=== PATIENT | female | born 1945 | race African-American/Black ===

== ENCOUNTER 2022-10-12 09:58 | Observation (INO) | payer OTHER ==
[2022-10-12 10:10] VITALS: BMI 32.5
[2022-10-12] MEDS ORDERED: HYDROCHLOROTHIAZIDE 25 MG TABLET (FP) PO ONE (10:36)
[2022-10-12] MEDS ORDERED: HYDROCHLOROTHIAZIDE 25 MG TABLET (FP) ONE (10:40)
[2022-10-12 10:58] LABS: EOS % 4.4 % (0-4.5); HEMATOCRIT 37.5 % (32.4-45.2); HEMOGLOBIN 12.4 GM/dL (10.7-15.3); LYMPH % 48.9 % (8-40); MCH 25.9 pg (25.7-33.7); MCHC 33.1 g/dl (32.0-36.0); MEAN CELL VOLUME 78.1 fl (80-96); MEAN PLT VOLUME 7.6 fl (7.5-11.1); MONO % 8.3 % (3.8-10.2); NEUT % 37.4 % (42.8-82.8); PLATELET COUNT 226 10^3/uL (134-434); RDW 16.5 % (11.6-15.6); WHITE BLOOD COUNT 5.1 K/mm3 (4.0-10.0)
[2022-10-12 11:12] LABS: INR 0.93 (0.83-1.09); PROTHROMBIN TIME (PATIENT) 10.8 SEC (9.7-13.0)
[2022-10-12 11:15] LABS: ACTIVATED PTT 28.2 SECONDS (25.2-36.5)
[2022-10-12 11:18] LABS: CALCIUM 9.8 mg/dL (8.5-10.1)
[2022-10-12 11:19] LABS: ALBUMIN 3.8 g/dl (3.4-5.0); BLOOD UREA NITROGEN 15.5 mg/dL (7-18); MAGNESIUM 2.2 mg/dL (1.8-2.4)
[2022-10-12 11:22] LABS: CREATININE 0.9 mg/dL (0.55-1.3)
[2022-10-12 11:24] LABS: BILIRUBIN,TOTAL 0.3 mg/dL (0.2-1); TOT PROT 7.5 g/dl (6.4-8.2)
[2022-10-12] MEDS ORDERED: ACETAMINOPHEN INJECTION 100 ML IVPB ONE (11:52)
[2022-10-12] MEDS ORDERED: ACETAMINOPHEN 1000 MG/100 ML BAG IVPB ONE (11:55)
[2022-10-12 14:46] VITALS: RESP 18
[2022-10-12] MEDS: LOSARTAN POTASSIUM 25 MG TABLET PO SCH (16:20)
[2022-10-12] MEDS: hydrALAZINE HCL 25 MG TABLET (FP) PO SCH (21:43)
[2022-10-12] MEDS ORDERED: ATORVASTATIN CA 40 MG TABLET (FP) PO SCH (22:00)
[2022-10-13 08:34] LABS: BASO % 0.6 % (0-2.0); EOS % 5.6 % (0-4.5); HEMATOCRIT 35.2 % (32.4-45.2); LYMPH % 44.6 % (8-40); MCH 26.3 pg (25.7-33.7); MCHC 33.9 g/dl (32.0-36.0); MEAN CELL VOLUME 77.5 fl (80-96); MEAN PLT VOLUME 7.9 fl (7.5-11.1); MONO % 9.6 % (3.8-10.2); NEUT % 39.6 % (42.8-82.8); PLATELET COUNT 222 10^3/uL (134-434); RBC 4.55 M/mm3 (3.60-5.2); RDW 16.4 % (11.6-15.6); WHITE BLOOD COUNT 5.3 K/mm3 (4.0-10.0)
[2022-10-13 09:02] LABS: CALCIUM 9.1 mg/dL (8.5-10.1)
[2022-10-13 09:03] LABS: ALBUMIN 3.5 g/dl (3.4-5.0); BLOOD UREA NITROGEN 15.3 mg/dL (7-18)
[2022-10-13 09:06] LABS: CREATININE 0.9 mg/dL (0.55-1.3)
[2022-10-13 09:07] LABS: BILIRUBIN,TOTAL 0.6 mg/dL (0.2-1); TOT PROT 6.9 g/dl (6.4-8.2)
[2022-10-13] MEDS ORDERED: ENOXAPARIN NA (PORCINE) 40 MG/0.4 ML DISP.SYRIN SQ SCH (10:00)
[2022-10-13] MEDS ORDERED: ASPIRIN 81 MG CHEWABLE TABLETS PO SCH (10:00)
[2022-10-13] MEDS: hydrALAZINE HCL 25 MG TABLET (FP) PO SCH (11:04)
[2022-10-13] MEDS: LOSARTAN POTASSIUM 25 MG TABLET PO SCH (11:13)
[2022-10-13 18:54] VITALS: BP 136/60; PULSE 66; TEMP 98.7
== END 2022-10-13 19:34 | disposition home or self-care (01) ==
LOC: JER 09:58 → SUPCPDRO 09:58 → JERBED 11:41 → J4W 13:29
PROVIDERS: ADMIT Internal Medicine; ATTEND Internal Medicine
PROC: 3E023GC Introduction of Other Therapeutic Substance into Muscle, Percutaneous Approach (ICD-10-PCS; principal; 2022-10-12)
DX: G45.9 Transient cerebral ischemic attack, unspecified (principal); I16.0 Hypertensive urgency; H53.8 Other visual disturbances; R20.0 Anesthesia of skin; E66.8 Other obesity; Z68.32 Body mass index [BMI] 32.0-32.9, adult
CPT/HCPCS: 36415; 70450-TC; 70551-TC; 71045-TC-FY; 80053; 80061; 82550; 82962; 83036; 83735; 84100; 84484; 85025; 85610; 85730; 86850; 86900; 86901; 93005; 93010; 93306-TC; 93880-TC; 96372; 96374; 97116-GP; 97161-GP; 99285-25; C9803-CS; G0378; U0003; U0005